=== PATIENT | male | born 1940 | race Caucasian/White ===

== ENCOUNTER 2017-04-14 19:11 | Outpatient (CLI) | payer MEDICARE, OTHER | END 2017-04-14 19:12 | disposition critical access hospital (66) | LOC: EMS 19:11 | PROVIDERS: ATTEND Surgery | DX: R53.1 Weakness (principal) | CPT/HCPCS: A0425; A0429 ==

== ENCOUNTER 2017-04-14 19:28 | Emergency (ER) | payer MEDICARE, OTHER ==
[2017-04-14 20:08] LABS: BASOPHILS % (AUTO) 0.3 %; EOSINOPHILS % (AUTO) 0.3 %; HGB - HEMOGLOBIN 11.2 g/dL (14.0-18.0); LYMPHOCYTES # (AUTO) 0.4 10^3/uL (1.5-3.5); LYMPHOCYTES % (AUTO) 5.9 %; MEAN CORPUSCULAR HEMOGLOBIN 29.5 pg (27.0-31.0); MEAN CORPUSCULAR VOLUME 89.3 fL (80.0-94.0); MONOCYTES # (AUTO) 0.8 10^3/uL (0.0-1.0); MONOCYTES % (AUTO) 11.4 %; NEUTROPHILS # (AUTO) 5.5 10^3/uL (1.5-6.6); NEUTROPHILS % (AUTO) 82.1 %; PLT - PLATELET COUNT 269 10^3/uL (130-450); RED CELL DISTRIBUTION WIDTH 16.1 % (12.0-15.0); WHITE BLOOD COUNT 6.8 x10^3/uL (4.8-10.8)
[2017-04-14 20:14] LABS: INR 1.1 (0.8-1.2); PT - PROTHROMBIN TIME 12.6 secs (9.9-12.6)
--- NOTE | 2017-04-14 20:16 | ED Physician Documentation ---
History of Present Illness - Stated complaint Stated Complaint: WEAK - Chief complaint Chief Complaint: Neuro - History obtained from History obtained from: Patient, Family - History of Present Illness Timing: Enter time (16:00), Today Improved by: no ameliorating factors Worsened by: no exacerbating factors - Additonal information Additional information: c/o generalized weakness that started approximately 4 PM today. says patient usually can ambulate slowly on his own and get out of bed, but since 4 PM, he has been unable to do either of these things due to generalized weakness , most noticeable BLE. Seen by his rad/onc today and plan is to get MRI brain tomorrow (from 's HPI, sounds like this was more for intermittent vomiting and possibly surveillance; he did not develop the weakness until after he met with his doctor today) Review of Systems Constitutional: denies: Fever, Chills, Sweats Eyes: reports: Reviewed and negative Cardiac: reports: Reviewed and negative Respiratory: reports: Reviewed and negative GI: reports: Nausea, Vomiting. denies: Abdominal Pain, Constipation, Diarrhea : denies: Dysuria, Frequency Musculoskeletal: reports: Reviewed and negative Neurologic: reports: Generalized weakness. denies: Focal weakness, Numbness, Confused, Altered mental status, Headache PD PAST MEDICAL HISTORY - Past Medical History Past Medical History: Yes Cardiovascular: Hypertension Respiratory: Pneumonia Neuro: CVA Psych: Depression Musculoskeletal: Osteoarthritis, Rheumatoid arthritis - Past Surgical History Past Surgical History: Yes Derm: Skin cancer surgery - Present Medications Home Medications: Ambulatory Orders Medication Instructions Recorded Confirmed Atorvastatin [Lipitor] 20 mg PO DAILY 12/08/13 12/08/13 Calcium Carbonate/Vitamin D3 1 tab PO BID 12/08/13 12/08/13 [Calcium 500 + D Tablet] Citalopram [CeleXA] 20 mg PO DAILY 12/08/13 12/08/13 Desonide 12/08/13 12/08/13 Fluorouracil [Efudex] 12/08/13 12/08/13 Omeprazole [PriLOSEC] 10 mg DAILY 12/08/13 12/08/13 Potassium Chloride [K-Dur] 10 meq DAILY 12/08/13 12/08/13 predniSONE [Deltasone] 6 mg DAILY 12/08/13 12/08/13 Amlodipine Besylate 1 tab PO DAILY 04/14/17 04/14/17 Carvedilol 1 tab PO BID 04/14/17 04/14/17 Clopidogrel Bisulfate [Clopidogrel] 1 tab PO DAILY 04/14/17 04/14/17 Docusate Sodium 250Mg Capsule 1 cap PO DAILY 04/14/17 04/14/17 [Colace 250Mg Capsule] Fluticasone Propionate [Flovent 2 spray LORELEI DAILY 04/14/17 04/14/17 Diskus] Guaifenesin [Mucinex] 600 mg PO BID 04/14/17 04/14/17 Hydrocodone/Acetaminophen [Vicodin 1 tab PO BID PRN 04/14/17 04/14/17 5-300 mg Tablet] Ibandronate Sodium 1 tab PO 04/14/17 Levothyroxine Sodium 1 tab PO DAILY 04/14/17 04/14/17 Lidocaine Patch 5% [Lidoderm Patch] 1 patch TOP DAILY 04/14/17 04/14/17 Mirabegron [Myrbetriq] 1 tab PO DAILY 04/14/17 04/14/17 Valsartan 1 tab PO BID 04/14/17 04/14/17 hydroCHLOROthiazide 1 tab PO DAILY 04/14/17 04/14/17 [Hydrochlorothiazide] - Allergies Allergies/Adverse Reactions: Allergies Allergy/AdvReac Type Severity Reaction Status Date / Time No Known Drug Allergies Allergy Verified 04/14/17 20:02 - Social History Does the pt smoke?: No Smoking Status: Never smoker Does the pt drink ETOH?: Yes Does the pt have substance abuse?: No - Immunizations Immunizations are current?: Yes - POLST Patient has POLST: No PD ED PE NORMAL - Vitals Vital signs reviewed: Yes - General General: Alert and oriented X 3, No acute distress, Well developed/nourished, Other (answers slowly but appropriately) - HEENT HEENT: PERRL, EOMI, Moist mucous membranes - Neck Neck: Supple, no meningeal sign - Cardiac Cardiac: RRR, No murmur, No gallop, No rub - Respiratory Respiratory: No respiratory distress, Clear bilaterally - Abdomen Abdomen: Soft, Non tender - Back Back: No CVA TTP - Derm Derm: Normal color, Warm and dry - Neuro Neuro: Alert and oriented X 3, 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8 Eos # 0.0 Baso # 0.0 Absolute Nucleated RBC 0.00 Nucleated RBC % 0.1 PT 12.6 INR 1.1 Sodium 139 Potassium 4.1 Chloride 99 L Carbon Dioxide 30 Anion Gap 10.0 BUN 20 Creatinine 1.0 Estimated GFR (MDRD) 73 L Glucose 111 H Calcium 9.9 Total Bilirubin 0.6 AST < 10 L ALT 10 Alkaline Phosphatase 43 Troponin I Total Protein 6.1 L Albumin 3.0 L Globulin 3.1 Albumin/Globulin Ratio 1.0 Lipase < 10 L Urine Color Urine Clarity Urine pH Ur Specific [place] Urine Protein Urine Glucose (UA) Urine Ketones Urine Occult Blood Urine Nitrite Urine Bilirubin Urine Urobilinogen Ur Leukocyte Esterase Urine RBC Urine WBC Ur Squamous Epith Cells Amorphous Sediment Urine Bacteria Ur Microscopic Review Urine Culture Comments 04/14/17 04/14/17 19:45 20:50 WBC RBC Hgb Hct MCV MCH MCHC RDW Plt Count MPV Neut # Lymph # Jones # Eos # Baso # Absolute Nucleated RBC Nucleated RBC % PT INR Sodium Potassium Chloride Carbon Dioxide Anion Gap BUN Creatinine Estimated GFR (MDRD) Glucose Calcium Total Bilirubin AST ALT Alkaline Phosphatase Troponin I < 0.04 Total Protein Albumin Globulin Albumin/Globulin Ratio Lipase Urine Color YELLOW Urine Clarity HAZY Urine pH 7.0 Ur Specific [place] 1.015 Urine Protein NEGATIVE Urine Glucose (UA) NEGATIVE Urine Ketones NEGATIVE Urine Occult Blood TRACE-INTA Urine Nitrite NEGATIVE Urine Bilirubin NEGATIVE Urine Urobilinogen 0.2 (NORMAL) Ur Leukocyte Esterase NEGATIVE Urine RBC 0-5 Urine WBC 0-3 Ur Squamous Epith Cells FEW Squamous Amorphous Sediment Moderate Urine Bacteria Moderate H Ur Microscopic Review INDICATED Urine Culture Comments INDICATED - Rads (name of study) CT head w/contrast Radiology: Prelim report reviewed, See rad report chest xray Radiology: Prelim report reviewed, See rad report PD MEDICAL DECISION MAKING - ED course Complexity details: reviewed results, re-evaluated patient, considered differential, d/w patient ED course: No vomiting during ED stay. Tests do not reveal acute or apparently new pathology, no apparent etiology at this time for patient's weakness. After tests resulted and d/w patient and spouse, ED staff helped patient to stand and walk with walker. Spouse feels he is close enough to baseline for d/c home, and at this time there does not appear to be a benefit of, nor indication for, keeping patient in hospital (or transfer). Departure - Departure Disposition: 01 Home, Self Care Clinical Impression: Weakness Condition: Good Instructions: ED Weakness [facility] Discharge Date/Time: 04/15/17 00:08
[2017-04-14 20:18] LABS: ALKALINE PHOSPHATASE 43 IU/L (42-121); ALT ALANINE AMINOTRANSFERASE 10 IU/L (10-60); AST ASPARTATE AMINOTRANSFERASE < 10 IU/L (10-42); BILIRUBIN,TOTAL 0.6 mg/dL (0.2-1.0); BUN - BLOOD UREA NITROGEN 20 mg/dL (6-20); CALCIUM 9.9 mg/dL (8.5-10.3); CARBON DIOXIDE - CO2 30 mmol/L (21-32); CHLORIDE 99 mmol/L (101-111); GFR - MDRD 73 (>89); GLUCOSE 111 mg/dL (70-100); SODIUM 139 mmol/L (135-145); TOTAL PROTEIN 6.1 g/dL (6.7-8.2)
[2017-04-14 20:19] LABS: LIPASE < 10 U/L (22-51)
[2017-04-14 21:01] LABS: BILIRUBIN,URINE NEGATIVE (NEGATIVE); GLUCOSE, URINE (UA) NEGATIVE (NEGATIVE); KETONES,URINE (UA) NEGATIVE (NEGATIVE); LEUKOCYTE ESTERASE, URINE NEGATIVE (NEGATIVE); NITRITE,URINE NEGATIVE (NEGATIVE); OCCULT BLOOD,URINE TRACE-INTA (NEGATIVE); PROTEIN,URINE NEGATIVE (NEGATIVE); UROBILINOGEN,URINE 0.2 (NORMAL) E.U./dL (NORMAL)
[2017-04-14 21:10] LABS: AMORPHOUS SEDIMENT,UR Moderate /LPF; BACTERIA,URINE Moderate /HPF (None Seen); CLARITY,URINE HAZY (CLEAR); RBC,URINE 0-5 /HPF (0-5); SQUAMOUS EPITHELIAL CELL,UR FEW Squamous (<= Few)
[2017-04-14] MEDS ORDERED: IOPAMIDOL-300 100 ML VIAL ONE ×2 (21:32→22:27)
[2017-04-14] MEDS ORDERED: IOPAMIDOL-300 100 ML VIAL IVP ONE (22:43)
--- NOTE | 2017-04-14 23:10 | XRAY Preliminary Report ---
Exam: XR CHEST 2 VIEW X-RAY IMPRESSION: 1. Focal posterior airspace opacity best seen on the lateral view, possibly pneumonia or neoplasm. Fo llow-up imaging is needed to show resolution. 2. Borderline heart size. [facility] SITE ID: [id number]
--- NOTE | 2017-04-14 23:10 | XRAY Report ---
EXAM: CHEST RADIOGRAPHY EXAM DATE: 04/14/2017 10:48 PM. CLINICAL HISTORY: Decreased mental status. Cough. Decreased breath sounds on the left. COMPARISON: None. TECHNIQUE: 2 views. FINDINGS: Lungs/Pleura: Focal airspace opacity best seen posteriorly on the lateral view. This may be in the po sterior segment of the upper lobe or superior segment of the lower lobe. Laterality is difficult to d etermine but more likely on the right. No obvious pleural effusion seen. No pneumothorax. Mediastinum: Heart size upper normal. Tortuous ectatic aorta. Other: Osteopenia. 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 IMPRESSION: 1. Focal posterior airspace opacity best seen on the lateral view, possibly pneumonia or neoplasm. Fo llow-up imaging is needed to show resolution. 2. Borderline heart size. [facility] Referring Provider Line: [phone] SITE ID: [id number]
--- NOTE | 2017-04-14 23:15 | CT Report ---
EXAM: CT HEAD WITH CONTRAST EXAM DATE: 04/14/2017 10:42 PM. CLINICAL HISTORY: Weakness, altered mental status. History of lung cancer. COMPARISON: MR brain 03/10/2012. TECHNIQUE: Multiaxial CT images were obtained from the foramen magnum to the vertex. Reformats: Coron al. IV contrast: 80 cc Isovue-300. In accordance with CT protocol optimization, one or more of the following dose reduction techniques w ere utilized for this exam: automated exposure control, adjustment of mA and/or KV based on patient s ize, or use of iterative reconstructive technique. FINDINGS: Compared to 2012, interval placement of a right frontal DITCH REPAIRER shunt. Catheter tip minimally protrudes in to the left frontal horn. Ventricular size is unchanged. Moderately extensive white matter hypodensity, likely small vessel ischemia. The extent is similar. Old appearing lacunar infarct within the left maritza, this was a recent ischemic event on the prior MR. No obvious hemorrhage. No space-occupying lesion, extracerebral fluid collection or CT evidence of ne w infarct. Rounded subcutaneous nodule in the right parietal scalp measures 18 mm in diameter, this appears to h ave increased slightly in size. Prior measurements on the order of 13 mm. IMPRESSION: Interval placement of a right frontal DITCH REPAIRER shunt catheter, ventricular size is unchanged. 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 No acute intracranial process identified. No abnormal enhancement to suggest metastatic disease. Enlarging right subcutaneous nodule over the right parietal region, possible sebaceous cyst. Please c prashant clinically. [facility] Referring Provider Line: [phone] SITE ID: [id number]
[2017-04-15 00:17] VITALS: BP 153/81
== END 2017-04-15 00:08 | disposition home or self-care (01) ==
LOC: EDUNIT# → ED 19:28
DX: R53.1 Weakness (principal); I10 Essential (primary) hypertension; Z86.73 Personal history of transient ischemic attack (TIA), and cerebral infarction without residual deficits
CPT/HCPCS: 36415; 51701; 70460; 71046; 80053; 81001; 83690; 84484; 85025; 85610; 87086; 99284; 99285; Q9967; 81003